=== PATIENT | female | born 1970 | race Asian ===

== ENCOUNTER 2018-07-07 08:04 | Emergency (ER) | payer MEDICAID ==
[~2018-07-07] VITALS: Ht 157.5 cm; Wt 56.7 kg
[2018-07-07 08:08] VITALS: BP_SYST 134
--- NOTE | 2018-07-07 08:14 | NUR ---
Brandi gil in ED - 07/07/18 at 0816 by MADIHA Pt placed to ER bed 6, report given to LAURO Block.
--- NOTE | 2018-07-07 08:14 | NUR ---
Brandi gil in ED - 07/07/18 at 0816 by MADIHA Pt placed to ER bed 6, report given to LAURO Posey.
--- NOTE | 2018-07-07 08:14 | NUR ---
Pt placed to ER bed 5, report given to LAURO Block.
--- NOTE | 2018-07-07 08:20 | NUR ---
ER at bedside examining patient.
--- NOTE | 2018-07-07 08:21 | NUR ---
Patient is awake, alert, and oriented x4. She reports falling on Tuesday night and scraping both knees. Patient presents with abrasions on both knees. She reports a history of high cholestrol. No s/s of distress noted.
[2018-07-07 08:31] VITALS: BP_SYST 134
--- NOTE | 2018-07-07 08:32 | NUR ---
Patient given written and verbal discharge instructions and verbalizes understanding. ER MD discussed with patient the results and treatment provided. Patient in stable condition. ID arm band removed. Rx of keflex given. Patient educated on pain management and to follow up with PMD. Pain Scale 6/10, patient states it is within tolerable limits. Opportunity for questions provided and answered. Medication side effect fact sheet provided.
== END 2018-07-07 08:30 | disposition home or self-care (01) ==
LOC: SED 08:04
DX: S80.212A Abrasion, left knee, initial encounter (principal); S80.211A Abrasion, right knee, initial encounter; L03.116 Cellulitis of left lower limb; L03.115 Cellulitis of right lower limb; W19.XXXA Unspecified fall, initial encounter; Y93.89 Activity, other specified; Y92.89 Other specified places as the place of occurrence of the external cause; Y99.8 Other external cause status
CPT/HCPCS: 99283